=== PATIENT | female | born 1995 | race Caucasian/White ===

== ENCOUNTER 2019-05-07 10:05 | Emergency (ER) | payer OTHER ==
[~2019-05-07] VITALS: Ht 165.1 cm; Wt 50.0 kg
[2019-05-07 10:08] VITALS: BP 121/79; PULSE 79; RESP 18; Ht 165.1 cm; Wt 50.0 kg
--- NOTE | 2019-05-07 10:09 | ERD ---
ER Documentation Chief Complaint Chief Complaint Withdrawing from alcohol and heroin HPI 23-year-old female with no significant medical history other than anemia presents to the ED and [employer] custody for pre-booking clearance stating "I am withdrawing from heroin and alcohol". Patient reports last used yesterday. P atient reports feeling anxious with total body pain but denies visual or auditory hallucinations. No abdominal pain, nausea vomiting. No chest pain, palpitations or shortness of breath. No fevers or chills. ROS All systems reviewed and are negative except as per history of present illness. Allergies Allergies: Coded Allergies: No Known Allergy (Unverified , 05/07/19) PMhx/Soc Reviewed in chart. As per HPI. History of Surgery: No Anesthesia Reaction: No Hx Neurological Disorder: No Hx Respiratory Disorders: No Hx Cardiac Disorders: No Hx Psychiatric Problems: No Hx Miscellaneous Medical Probl: Yes (Anemia) Hx Alcohol Use: Yes Hx Substance Use: Yes Hx Tobacco Use: Yes FmHx No family history relevant to presenting complaint Physical Exam Vitals Vital Signs Date Temp Pulse Resp B/P (MAP) Pulse Ox O2 O2 Flow FiO2 Time Delivery Rate 05/07/19 98.1 79 18 121/79 100 10:08 (93) Physical Exam Const: Alert, anxious, mild distress Head: Atraumatic Eyes: Normal Conjunctiva ENT: Normal External Ears, Nose and Mouth. Neck: Full range of motion. No meningismus. Resp: Clear to auscultation bilaterally Cardio: Regular rate and rhythm, no murmurs Abd: Soft, non tender, non distended. Normal bowel sounds Skin: No petechiae or rashes Back: No midline or flank tenderness Ext: No cyanosis, or edema Neur: Awake and alert. No focal deficit. No tremors. Psych: Anxious, cooperative. No hallucinations. Results 24 hrs Current Medications Medications Dose Sig/Karol Start Time Status Last (Trade) Ordered Route PRN Stop Time Admin Dose Reason Admin Lorazepam 1 mg ONCE ONCE 05/07/19 DC 05/07/19 (Ativan) IM 10:30 10:33 05/07/19 10:31 Procedures/MDM DOCUMENTS REVIEWED: ED nurse, no prior records MEDICAL DECISION MAKIN-year-old female with no significant medical history other than anemia presents to the ED and [employer] custody for pre-booking clearance stating "I am withdrawing from heroin and alcohol". Patient presents with of mild alcohol and opiate withdrawal. No evidence of delirium tremens. Normal vital signs. Treated with Ativan 1 mg IM. Stable for discharge with precautionary instructions and outpatient follow-up as counseled. Cleared for booking. Counseled patient regarding diagnostic workup, diagnosis and need for followup. Understands to return to ED if symptoms recur, worsen or any other concerns. Departure Diagnosis: Primary Impression: Alcohol withdrawal syndrome Complication of substance-induced condition: uncomplicated Qualified Codes: F10.230 - Alcohol dependence with withdrawal, uncomplicated Additional Impressions: Opiate withdrawal In police custody Medical clearance for incarceration Condition: Stable Comments Medically cleared for booking BULMARO BEE MD May 07, 2019 10:09
[2019-05-07] MEDS ORDERED: LORAZEPAM 2 MG INJ IM ONE (10:30)
== END 2019-05-07 11:00 ==
LOC: E/R 10:05
DX: F10.230 Alcohol dependence with withdrawal, uncomplicated (principal); F11.23 Opioid dependence with withdrawal; Z87.891 Personal history of nicotine dependence
CPT/HCPCS: 96372; 99284; J2060